=== PATIENT | male | born 2000 | race Caucasian/White ===

== ENCOUNTER 2019-02-23 21:45 | Emergency (ER) | payer BC ==
--- NOTE | 2019-02-23 22:44 | EKG ---
[place] [facility] [place] NAME: MICHELLE WOLFE : [id number] MR: [id number] V: [id number] EXAM DATE: ORDERING PHYSICIAN: ROSIE BETANCOURT TECHNOLOGIST: BLANCHE Test Reason : CARDIAC Blood Pressure : / mmHG Vent. Rate : 089 BPM Atrial Rate : 089 BPM P-R Int : 140 ms QRS Dur : 092 ms QT Int : 354 ms P-R-T Axes : 073 057 056 degrees QTc Int : 430 ms Sinus rhythm Probable left atrial enlargement Nonspecific interventricular conduction delay No previous ECGs available Confirmed by RYAN PATRICK ([id number]) on 02/24/2019 6:34:33 AM Referred By: Confirmed By:RYAN PATRICK
[2019-02-23 23:00] VITALS: BP 128/83
--- NOTE | 2019-02-23 23:08 | ER Report ---
History and Physical Time Seen By MD: 22:55 Hx. of Stated Complaint: CHEST PAIN THAT STARTED AROUND 12 THIS AFTERNOON, HX OF IRREGULAR HR HPI/ROS CHIEF COMPLAINT: Chest pain HISTORY OF PRESENT ILLNESS: 18-year-old male presents with chest pain this evening. He notes that he has had 2 days of myalgias, feeling like he has fever, general viral symptoms. He states that at approximately 10:00 he noted he had left-sided sharp chest pain that lasted seconds. This is happened 5-6 times. It is not associated with position or exertion. There are no known exacerbating or releiving factors. He has had this previously, though associated with lightheadedness, when he was noted to have tachycardia to the 200s. This was subsequently resolved by ablation. Patient does not recall if this was SVT. During current episode, patient has not had shortness of breath, lightheadedness, palpitations. He has not had swelling in his legs, no recent travel. He does not know family history, and does not have siblings. He does not have significant tobacco use, denies drugs. REVIEW OF SYSTEMS: Constitutional: No fever, no chills. Eyes: No discharge. ENT: No sore throat. Cardiovascular: above Respiratory: No cough, no shortness of breath. Gastrointestinal: No abdominal pain, no vomiting. Genitourinary: No hematuria. Musculoskeletal: myalgias. Skin: No rashes. Neurological: No headache. Remainder of the 14 system rev: Yes Allergies: Coded Allergies: No Known Drug Allergies (Unverified , 02/23/19) Reviewed Nurses Notes: Yes Hx Substance Use Disorder: No Constitutional Vital Sign - Last 24 Hours 02/23/19 02/23/19 02/23/19 02/23/19 21:45 21:54 21:55 22:00 Temp 99.9 Pulse ??? 90 92 Resp 16 15 B/P (MAP) 132/86 (101) 132/86 133/82 (99) Pulse Ox 94 94 O2 Delivery Room Air 02/23/19 02/23/19 02/23/19 02/23/19 22:15 22:30 22:45 23:00 Pulse 94 86 82 89 Resp 20 17 21 20 B/P (MAP) 129/83 (98) 122/77 (92) 129/78 (95) 128/83 (98) Pulse Ox 94 93 92 93 02/23/19 23:15 Pulse ??? Physical Exam General Appearance: The patient is alert, has no immediate need for airway protection and no signs of toxicity. Eyes: Pupils equal and round no pallor or injection. ENT, Mouth: Mucous membranes are moist. Respiratory: There are no retractions, lungs are clear to auscultation. Cardiovascular: Regular rate and rhythm. No m/r/g. No murmurs upon supine positioning. No reproducible chest pain. No carotid bruits. Equal pulses bilaterally. Gastrointestinal: Abdomen is soft and non tender, no masses, bowel sounds normal. Neurological: alert, oriented, moves all ext Skin: Warm and dry, no rashes. Musculoskeletal: Neck is supple non tender. Extremities are nontender, nonswollen and have full range of motion. DIFFERENTIAL DIAGNOSIS: After history and physical exam differential diagnosis was considered for chest pain including but not limited to myocardial ischemia, pericarditis pulmonary embolus, aortic dissection, chest wall pain, pleural inflammation and pulmonary infectious causes. Medical Decision Making EKG/Imaging EKG Interpretation 12 lead EKG: Rhythm: Normal sinus rhythm [place]: Normal QRS: Normal ST segments: Normal Monitor Interpretation: Normal Sinus Rhythm ED Course/Re-evaluation ED Course 18-year-old otherwise healthy male, presents with 2 days of URI symptoms and myalgias, and 5-6 episodes of sharp, intermittent, seconds long chest pain. Chest pain is atypical, though considered serious illnesses. Given recent symptoms, considered pericarditis, however EKG is normal and symptoms are not positional or lasting, so less likely at this point. There is no evidence of arrhythmia as patient is monitored throughout ED stay. Considered ACS, however patient's HEART score is less than 4 with normal EKG, doubt ACS. Patient is PERC negative. After ED evaluation, the likelihood of emergent etiology, however patient understands that other symptoms or processes may develop and agrees to return for worsening symptoms or any concerns. Decision to Disposition Date: Feb 23, 2019 Decision to Disposition Time: 23:05 Depart Departure Latest Vital Signs Vital Signs Date Time Temp Pulse Resp B/P (MAP) Pulse Ox O2 Delivery O2 Flow Rate FiO2 02/23/19 23:15 ??? 02/23/19 23:00 20 128/83 (98) 93 02/23/19 21:55 99.9 Room Air Impression: Primary Impression: Chest pain Condition: Improved Disposition: HOME OR SELF-CARE Patient Instructions: Chest Pain (ED) Additional Instructions: As we discussed, while your chest pain is unlikely to be a serious cause right now, please return immediately if you have worsening pain, especially with exertion, associated with shortness of breath, lightheadedness, racing pulse or any other concerns. Follow up at the [facility] within 3-5 days for re-evaluation. Problem Qualifiers Primary Impression: Chest pain Chest pain type: unspecified Qualified Codes: R07.9 - Chest pain, unspecified ROSIE BETANCOURT MD Feb 23, 2019 23:07
== END 2019-02-23 23:11 | disposition home or self-care (01) ==
LOC: ER 22:37
DX: R07.9 Chest pain, unspecified (principal)
CPT/HCPCS: 93005; 99283